=== PATIENT | male | born 1960 | race Two or more races ===

== ENCOUNTER → 2018-07-04 | Day surgery (SDC) | payer BC ==
[2018-07-02 10:51] LABS: BASOPHILS # (AUTO) 0.1 (0.0-0.1); BASOPHILS % 0.6 % (0.0-1.0); EOSINOPHILS # (AUTO) 0.3 (0.0-0.4); EOSINOPHILS % 2.8 % (0.0-6.0); HEMATOCRIT 41.4 % (38.2-49.6); HEMOGLOBIN 13.8 g/dL (14.0-18.0); LYMPHOCYTES # (AUTO) 2.5 (1.0-3.2); MEAN CORPUSCULAR HEMOGLOBIN 29.7 pg (28-32); MEAN CORPUSCULAR HGB CONC 33.3 g/dL (31-35); MEAN CORPUSCULAR VOLUME 89.2 fL (81-99); MONOCYTES # (AUTO) 0.8 (0.2-0.8); MONOCYTES % 8.8 % (4.4-11.3); NEUTROPHILS # (AUTO) 5.3 (2.1-6.9); NEUTROPHILS % 59.2 % (38.7-80.0); PLATELET COUNT 244 x10e3/uL (140-360); RED BLOOD COUNT 4.64 x10e6/uL (4.3-5.7); RED CELL DISTRIBUTION WIDTH 12.1 % (11.7-14.4)
--- NOTE | 2018-07-02 11:02 | Diagnostic Imaging Report ---
EXAM: CHEST 2 VIEWS, PA and lateral DATE: 07/02/2018 Time stamp on exam: 10:34 AM INDICATION: Preoperative COMPARISON: None FINDINGS: LINES/TUBES: None LUNGS: No consolidations or edema. PLEURA: No effusions or pneumothorax. HEART AND MEDIASTINUM: Normal size and contour. BONES AND SOFT TISSUES: No acute findings. There are degenerative changes of the spine. Round circular soft tissue densities overlying the left upper quadrant of the abdomen appear artifactual. IMPRESSION: No acute thoracic abnormality. Signed by: Dr. Rachid Birmingham DO on 07/02/2018 10:59 AM
[2018-07-02 11:07] LABS: INR 0.89; PROTHROMBIN TIME 12.9 seconds (11.9-14.5)
[2018-07-02 11:08] LABS: PARTIAL THROMBOPLASTIN TIME 31.6 seconds (23.8-35.5)
[2018-07-02 11:15] LABS: ALANINE AMINOTRANSFERASE 26 IU/L (0-55); ALBUMIN/GLOBULIN RATIO 1.3 (0.8-2.0); ALKALINE PHOSPHATASE 60 IU/L (40-150); ANION GAP 12.3 mmol/L (8-16); BLOOD UREA NITROGEN 14 mg/dL (7-26); BUN/CREATININE RATIO 14 (6-25); CALCIUM 9.5 mg/dL (8.4-10.2); CARBON DIOXIDE 26 mmol/L (22-29); CHLORIDE 102 mmol/L (98-107); CREATININE, SERUM 0.97 mg/dL (0.72-1.25); EST GLOMERULAR FILTRATION RATE > 60 ML/MIN (60-); GLUCOSE 103 mg/dL (74-118); POTASSIUM 4.3 mmol/L (3.5-5.1); SODIUM 136 mmol/L (136-145)
[~2018-07-04] MED LIST: ASPIRIN81 MG PO; CEFOXITIN SOD 1 GM VIAL ONE; DEXAMETHASONE SOD PHOS INJ 4 MG/ML VIAL ONE; FENTANYL CITRATE/PF 100MCG/2 ML INJ ONE; KETOROLAC TROMETHAMINE 30 MG/ML VIAL ONE; LIDOCAINE HCL 2% LOCAL INJ 5 ML SDV VIAL INJ ONE; MACROBID 100 M100 MG PO; MIDAZOLAM HCL 2 MG/2 ML VIAL ONE; ONDANSETRON HCL INJ 2 MG/ML VIAL ONE; PROPOFOL IV EMULSION 10 MG/ML 20 ML VIAL ONE; SEVOFLURANE INHAL SOLN 250 ML PEN BTL ONE; [UNRECOGNIZED DRUG - SUPPLY]
--- OUTSIDE RECORDS SUMMARY | 2018-07-04 09:57 | XMS REPORT ---
Author [facility] Address Unknown Phone Unavailable Care Team Providers Care Insurance Agents Supervisor Name Role Phone STEVE ANDRADE Unavailable Unavailable Problems This patient has no known problems. Allergies, Adverse Reactions, Alerts This patient has no known allergies or adverse reactions. Medications This patient has no known medications. Results Test Description Test Time Test Comments Text Results Atomic Results Result Comments CHEST 2 VIEWS 2018-07-02 10:57:00 [place] [address] Patient Name: SHAMAR RUBIO MR #: [id number] : 1960 Age/Sex: 57/M Req #: [id number] Adm Physician: Ordered by: STEVE ANDRADE MD Report #: [id number] Location: OR Room/Bed: Procedure: [id number] DX/CHEST 2 VIEWS Exam Date: 07/02/18 Exam Time: 1031 REPORT STATUS: Signed EXAM: CHEST 2 VIEWS, PA and lateral DATE: 07/02/2018 Time stamp on exam: 10:34 AM INDICATION: Preoperative COMPARISON: None FINDINGS: LINES/TUBES: None LUNGS: No consolidations or edema. PLEURA: No effusions or pneumothorax. HEART AND MEDIASTINUM: Normal size and contour. BONES AND SOFT TISSUES: No acute findings. There are degenerative changes of the spine. Round circular soft tissue densities overlying the left upper quadrant of the abdomen appear artifactual. IMPRESSION: No acute thoracic abnormality. Signed by: Dr. Pedro Chester DO on 07/02/2018 10:59 AM Dictated By: PEDRO CHESTER DO 1059 Transcribed By: MARICEL on 07/02/18 1055 COPY TO: STEVE ANDRADE MD
[2018-07-04 11:50] VITALS: BP 135/73
--- NOTE | 2018-07-04 14:19 | Operative Report ---
DATE OF PROCEDURE: July 04, 2018 PREOPERATIVE DIAGNOSIS: Urethral stricture. POSTOPERATIVE DIAGNOSIS: Bulbar urethral stricture. OPERATION PERFORMED: Visual internal urethrotomy. ANESTHESIA: General. INDICATIONS: This patient is a 57-year-old [place] male who has a long history of urethral stricture disease. His last urethral dilation was back in 2013 or 2014. He came to see me again because he stated his stream was slowing down. He initially had microscopic hematuria. A CT scan was obtained which showed no evidence of stones, malignancy or hydronephrosis. For further details, please refer to the history and physical. Procedure was done in the following fashion: DESCRIPTION OF PROCEDURE: The patient was taken to the operating room and placed under general anesthesia, dressed and draped with Hibiclens in the usual fashion in lithotomy position. The Olympus visual internal urethrotome was inserted. After the obturator was removed, I then inserted the working element with a 30-degree oblique lens. A tight bulbar urethral stricture was encountered. I began cutting in the anterior position with the urethrotome at 12 o'clock, and this stricture was about 2.5 to 3 cm long. It was very close to the sphincter. Once I was beyond the stricture and could get beyond it with the urethrotome, I could see that the sphincter and verumontanum were intact. The prostate was about 20 grams in size. There was some mild to moderate bladder trabeculation. Clear efflux was seen from both ureteral orifices. No bladder tumors were identified. I then passed an Amplatz Super Stiff guidewire. Once the guidewire was in good position, I removed the urethrotome. My next step was to take a 22-Jordanian Grace catheter and use the Councill-tip catheter creator to put a hole at the bottom of the catheter. I then passed a catheter over the guidewire into the bladder. Once it was in good position and I had a good urine efflux, I was then able to inflate the balloon to 10 mL, and I removed the guidewire. Patient tolerated the procedure well and left the operating room in good condition. The patient will take Tylenol for pain at home. He will have a return appointment to see me on Saturday for removal of the catheter. He is being sent home on Macrobid 100 mg p.o. twice daily for 10 days and will have a return appointment to see me again on Saturday for the removal of the catheter. He will take Tylenol plain at home for pain. Job#: [id number]
== END | disposition home or self-care (01) ==
LOC: OR 09:45
PROVIDERS: ATTEND Urology
DX: N35.011 Post-traumatic bulbous urethral stricture (principal); N32.89 Other specified disorders of bladder; I70.0 Atherosclerosis of aorta; I10 Essential (primary) hypertension; E78.5 Hyperlipidemia, unspecified; R00.1 Bradycardia, unspecified; Z91.010 Allergy to peanuts; Z01.810 Encounter for preprocedural cardiovascular examination; Z01.812 Encounter for preprocedural laboratory examination; Z01.818 Encounter for other preprocedural examination; Z79.82 Long term (current) use of aspirin
CPT/HCPCS: 36415; 52276; 71046; 80053; 85025; 85610; 85730; 93005; J0694; J1100; J1885; J2001; J2250; J2405; J2704